=== PATIENT | male | born 1990 | race Caucasian/White ===

== ENCOUNTER 2021-09-28 12:22 | Inpatient (IN) | payer SELFPAY ==
[~2021-09-28] VITALS: Ht 180.3 cm; Wt 74.1 kg
--- NOTE | 2021-09-28 12:48 | NUR ---
Pt stated he tested positive to Covid-19 home test today.
[2021-09-28] MEDS ORDERED: PANTOPRAZOLE SODIUM 40 MG VIAL IV ONE (13:00)
[2021-09-28] MEDS ORDERED: ONDANSETRON 4 MG/2 ML VIAL IV ONE (13:00)
[2021-09-28] MEDS ORDERED: IV NORMAL SALINE 1000 ML BAG IV ONE (13:00)
--- NOTE | 2021-09-28 13:00 | NUR ---
Patient seen by ER MD. All orders carried out.
[2021-09-28 13:59] LABS: HEMATOCRIT 27.2 % (36.7-47.1); MEAN CORPUSCULAR HEMOGLOBIN 29.5 uug (23.8-33.4); MEAN CORPUSCULAR VOLUME 85.7 fL (73.0-96.2); PLATELET COUNT (AUTO) 227 K/uL (152-348)
[2021-09-28 14:01] LABS: POTASSIUM 3.6 mmol/L (3.5-5.1)
[2021-09-28 14:16] LABS: BILIRUBIN,DIRECT 0.1 mg/dL (0.0-0.2); BILIRUBIN,TOTAL 0.3 mg/dL (0.2-1.0); TOTAL PROTEIN, SERUM 6.1 g/dL (6.4-8.2)
[2021-09-28 14:58] LABS: *OCCULT BLOOD STOOL POSITIVE (NEGATIVE)
[2021-09-28] MEDS ORDERED: IV NORMAL SALINE 250 ML IV ONE (15:10)
[2021-09-28] MEDS ORDERED: IOHEXOL 350 100 ML INFUS..BTL ONE (15:10)
[2021-09-28] MEDS ORDERED: SWABABLE VALVE TRANSFER SET EA MC ONE (15:10)
[2021-09-28] MEDS ORDERED: PANTOPRAZOLE SODIUM IV 80 MG in IV DEXTROSE 5% 500 ML IV ONE (15:15)
--- NOTE | 2021-09-28 16:39 | NUR ---
Consent signed for Blood transufion and CT abdomen w/contrast.
[2021-09-28] MEDS ORDERED: LIDOCAINE-MPF 2% 5 ML VIAL ONE (17:15)
[2021-09-28] MEDS ORDERED: PROPOFOL 200 MG/20 ML BOTTLE ONE (17:15)
--- NOTE | 2021-09-28 18:53 | NUR ---
No distress identified during the shift. All orders carried out. Will endorse to the next shift.
--- NOTE | 2021-09-28 19:30 | NUR ---
pt is admitted to the hospital. I called upstairs and spoke to the senior technical analyst he states there is no charge nurse and they will call back with where the pt will go.
--- NOTE | 2021-09-28 19:47 | NUR ---
received a call from upstairs third floor pt will go to room 305
[2021-09-28] MEDS ORDERED: ONDANSETRON 4 MG/2 ML VIAL IV PRN (20:00)
[2021-09-28] MEDS ORDERED: PANTOPRAZOLE SODIUM IV 40 MG in IV DEXTROSE 5% 100 ML IV SCH (21:00)
--- NOTE | 2021-09-28 22:02 | NUR ---
report given to Yamila MOMIN pt to go to room 320.
[2021-09-28 22:13] LABS: HEMATOCRIT 22.5 % (36.7-47.1); MEAN CORPUSCULAR HEMOGLOBIN 29.9 uug (23.8-33.4); PLATELET COUNT (AUTO) 187 K/uL (152-348)
[2021-09-28 22:40] VITALS: BP 125/89
--- NOTE | 2021-09-28 22:49 | NUR ---
pt transported to room 320 via w/c with all belongings. LILIANE Driscoll at bedside to receive the pt.
--- NOTE | 2021-09-28 22:50 | NUR ---
Received pt from er via wheelchair. Under the care of Dr. Avel Rivero. dx:GI Bleed, Covid 19. Belonging list done. Pt in no acute distress. FDC assessment done. Admission process and care plan initiated. Pt on sinus rhythm. Safety and comfort provided. Will continue to monitor.
--- NOTE | 2021-09-28 23:45 | NUR ---
Pt complaining of headache. Notify Dr. Vallecillo. DR. Rivero ordered TYlenol 650 mg prn.
[2021-09-29] MEDS: ACETAMINOPHEN 325 MG TABLET PO PRN ×3 (00:38→20:22)
[2021-09-29 00:59] VITALS: BP 116/80
[2021-09-29] MEDS: IV NS 1000 ML 1,000 ML IV PRN ×2 (01:03→15:50)
--- NOTE | 2021-09-29 06:39 | NUR ---
Pt slept intermittently.Pt on sinus rhythm. Pt in no acute distress. Iv intact. Prescribed medication given and pt tolerated it well. Safety and comfort provided.All needs are met. Vital signs within normal limit. Pt on room air. Will endorse to incoming nurse.
[2021-09-29 06:50] LABS: MEAN CORPUSCULAR HEMOGLOBIN 30.6 uug (23.8-33.4); MEAN CORPUSCULAR VOLUME 85.2 fL (73.0-96.2); PLATELET COUNT (AUTO) 188 K/uL (152-348)
[2021-09-29 07:02] LABS: HEMATOCRIT 20.8 % (36.7-47.1)
[2021-09-29 07:06] LABS: CREATININE 1.1 mg/dL (0.6-1.3); MAGNESIUM 1.8 mg/dL (1.8-2.4); PHOSPHOROUS 2.6 mg/dL (2.5-4.9); POTASSIUM 3.4 mmol/L (3.5-5.1)
[2021-09-29] MEDS: PANTOPRAZOLE SODIUM 40 MG VIAL IV SCH ×2 (09:14→20:21)
[2021-09-29] MEDS: POTASSIUM CHLORIDE 50 ML IV SCH ×2 (09:52→11:21)
[2021-09-29 11:00] VITALS: BP 115/77
[2021-09-29] MEDS ORDERED: FINA5TAB11 PO (11:31)
[2021-09-29] MEDS ORDERED: FLUO10CA26 PO (11:31)
[2021-09-29 16:00] VITALS: BP 122/75
[2021-09-29 17:59] LABS: MEAN CORPUSCULAR VOLUME 85.6 fL (73.0-96.2); PLATELET COUNT (AUTO) 188 K/uL (152-348)
[2021-09-29 18:10] LABS: HEMATOCRIT 20.5 % (36.7-47.1)
--- NOTE | 2021-09-29 18:18 | NUR ---
SUBHA VIRAMONTES REPORTED TO ME THAT PATIENT HAD 2 BOWEL MOVEMENTS AND IT WAS LIQUIDY AND VERY DARK IN COLOR
--- NOTE | 2021-09-29 18:24 | NUR ---
TSEVEN CALLED FROM PHARMACY AND REPORTED PT'S CRITICAL VALUES: HGB 7.2, HCT 20.5. TEXTED THESE RESULTS TO DR MULTANI
--- NOTE | 2021-09-29 19:40 | NUR ---
Received patient lying in bed. AAOX4. In no acute distress. Denies any SOB. Complain of headache. Will give Tylenol 650mg PO PRN per order. NSR on tele with HR of 92/min. Needs assessed and attended to. Safety measure initiated and call light within reached.
--- NOTE | 2021-09-29 20:00 | NUR ---
Day shift RN reported that IV on left hand was leaking. Placed new IV on left FA #20G and discontinued left hand IV. Pt tolerated procedure well. IVF infusing.
[2021-09-29 20:25] VITALS: BP 129/84
[2021-09-30] VITALS (7 sets, daily range): BP systolic 103–120; BP diastolic 69–80
--- NOTE | 2021-09-30 08:00 | NUR ---
AWAKE ALERT AND ORIENTED X3 NO SS OF CHEST PAIN OR SOB. SATURATING 98% ON RA
[2021-09-30 08:07] LABS: PLATELET COUNT (AUTO) 207 K/uL (152-348)
[2021-09-30 08:10] LABS: MEAN CORPUSCULAR HEMOGLOBIN 30.4 uug (23.8-33.4); MEAN CORPUSCULAR VOLUME 86.3 fL (73.0-96.2)
[2021-09-30 08:31] LABS: MAGNESIUM 1.9 mg/dL (1.8-2.4); POTASSIUM 3.2 mmol/L (3.5-5.1)
[2021-09-30] MEDS: PANTOPRAZOLE SODIUM 40 MG VIAL IV SCH ×2 (08:39→20:23)
[2021-09-30 08:57] LABS: HEMATOCRIT 19.3 % (36.7-47.1)
[2021-09-30] MEDS: IV NS 1000 ML 1,000 ML IV PRN ×2 (09:10→23:42)
[2021-09-30] MEDS: POTASSIUM CHLORIDE 50 ML IV SCH ×4 (09:49→12:34)
[2021-09-30] MEDS: ACETAMINOPHEN 325 MG TABLET PO PRN (10:45)
--- NOTE | 2021-09-30 11:45 | NUR ---
SEEN BY DR MULTANI MADE AWARE OF LOW HH WITH ORDER TO TRANSFUSE 1 UNIT OF PRBC. CONSENT GIVEN BY PATIENT
--- NOTE | 2021-09-30 13:03 | NUR ---
DR NICHOLS NOTIFIED OF CONSULT AND SAID TO KEEP PATIENT ON NPO
[2021-09-30] MEDS ORDERED: FINA1TAB PO (13:23)
[2021-09-30 14:31] LABS: NEUTROPHILS % (MANUAL) 0 % (42-75)
--- NOTE | 2021-09-30 14:58 | NUR ---
blood transfusion started at bedside. closely monitored
--- NOTE | 2021-09-30 15:19 | NUR ---
NO BLOOD TRANSFUSION REACTION NOTED , CONTINUE WITH TX. SR ON MONITOR
--- NOTE | 2021-09-30 17:44 | NUR ---
BLOOD TRANSFUSION COMPLETED NO SIGNS OF REACTION NOTED. REMAINS SR ON MONITOR AFEBRILE. STILL WAITING FOR GI
--- NOTE | 2021-09-30 19:30 | NUR ---
Received patient lying in bed. AAOX4. In no acute distress. Denies any pain or SOB. NSR on tele with HR of 87/min. IV site on left FA intact and patent. IVF infusing. Needs assessed and attended to. COVID precaution observed. Safety measure initiated and call light within reached.
[2021-09-30 20:31] LABS: HEMATOCRIT 23.5 % (36.7-47.1)
[2021-09-30] MEDS ORDERED: FINASTERIDE 5 MG TABLET PO SCH ×2 (21:00)
[2021-10-01] VITALS: BP 113/79
[2021-10-01 04:00] VITALS: BP 104/71
--- NOTE | 2021-10-01 04:45 | NUR ---
Spoke to preop RN Lynda and provide information regarding patient. Remains NPO. For EGD this morning. In no acute distress. Denies any pain or SOB. Slept well during the night. NSR on tele with HR of 84/min. COVID precaution maintained. Needs attended to and met. Safety measure maintained and call light within reached.
--- NOTE | 2021-10-01 05:48 | NUR ---
Patient taken to OR via gurney accompanied by 2 RN.
--- NOTE | 2021-10-01 06:53 | NUR ---
Patient back to room s/p EGD. Per RN Bes, no active bleeding found. Patient AAOX4. In no acute distress. Denies any pain or SOB. Dr. Manzo with order to resume diet and medications.
--- NOTE | 2021-10-01 08:00 | NUR ---
Pt.sleeping,no s/s of distress or pain noted.
[2021-10-01] MEDS: PANTOPRAZOLE SODIUM 40 MG VIAL IV SCH (08:43)
[2021-10-01] MEDS ORDERED: FLUOXETINE HCL 10 MG CAPSULE PO SCH (09:00)
[2021-10-01 11:15] VITALS: BP 126/68
--- NOTE | 2021-10-01 12:45 | NUR ---
Pt. mom on the phone was updated with pt.condition and plan of care.
[2021-10-01] MEDS: IV NS 1000 ML 1,000 ML IV PRN (12:48)
[2021-10-01] MEDS: ACETAMINOPHEN 325 MG TABLET PO PRN (12:48)
[2021-10-01] MEDS ORDERED: PANT40TA2 PO (12:57)
--- NOTE | 2021-10-01 13:18 | NUR ---
pt.was seen by with new orders.
[2021-10-01 14:40] LABS: POTASSIUM 3.2 mmol/L (3.5-5.1)
[2021-10-01 16:26] VITALS: BP 113/74
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
== END 2021-10-01 18:30 | disposition home or self-care (01) | DRG 377 ==
LOC: ER 12:22 → TELE3 22:22
PROC: 30233N1 Transfusion of Nonautologous Red Blood Cells into Peripheral Vein, Percutaneous Approach (ICD-10-PCS; 2021-09-30)
PROC: 0DJ08ZZ Inspection of Upper Intestinal Tract, Via Natural or Artificial Opening Endoscopic (ICD-10-PCS; principal; 2021-10-01)
DX: K29.01 Acute gastritis with bleeding (principal); U07.1 COVID-19; Z20.822 Contact with and (suspected) exposure to COVID-19; R51.9 Headache, unspecified; Z79.899 Other long term (current) drug therapy; K27.9 Peptic ulcer, site unspecified, unspecified as acute or chronic, without hemorrhage or perforation
CPT/HCPCS: 36415; 70030-TC; 71045; 71275; 83690; 83735; 84100; 85018; 85025; 86850; 86900; 86901; 86920; 93005; A4663; C9113; G0378; J2405; J3480; J3490; J7040; J7060; P9016; Q9967